=== PATIENT | male | born 1965 | race Caucasian/White ===

== ENCOUNTER 2020-05-20 14:37 | Emergency (ER) | payer MEDICAID ==
[~2020-05-20] VITALS: Ht 182.9 cm; Wt 95.3 kg
[~2020-05-20 14:37] MED LIST: CARI350T22 PO; CITA-73 PO; DIVA500T53 PO; DOXY-286 PO; INSUINJ47 IJ; METR500T PO; PANT1INJ3 PO; QUET25TA37 PO; SUCR1TAB22 OR
[2020-05-20] MEDS ORDERED: SODIUM CHLORIDE 0.9% 1,000 ML IV ONE (16:15)
[2020-05-20] MEDS ORDERED: ASPirin 81 mg TAB PO ONE (16:15)
[2020-05-20] MEDS ORDERED: SODIUM CHLORIDE 0.9% 1,000 ML IVB ONE (16:15)
[2020-05-20] MEDS ORDERED: DONNATAL 5ml ORAL Elix (BELLADONNA ALK-PHENOBARB) PO ONE (16:30)
[2020-05-20] MEDS ORDERED: ALUM & MAG HYDROX-SIMETH LIQ(MAALOX) 30 ML PO ONE (16:30)
[2020-05-20] MEDS ORDERED: LIDOCAINE VISCOUS 2% 15ML UD PO ONE (16:30)
[2020-05-20] MEDS ORDERED: FAMOTIDINE 20 MG TAB PO ONE (16:30)
[2020-05-20 16:39] LABS: Basophils # (auto) 0.1 10 ^3/uL (0-0.2); Basophils % (auto) 0.9 % (0.0-2.0); Eosinophils # (auto) 0.2 10 ^3/uL (0-0.8); Eosinophils % (auto) 2.4 % (0.0-7.0); Hematocrit 45.2 % (41.0-53.0); Hemoglobin 15.3 g/dL (13.5-17.5); Lymphocytes # (auto) 1.8 10 ^3/uL (0.4-5.4); Lymphocytes % (auto) 26.3 % (10.0-50.0); Mean Corpuscular Hemoglobin 28.7 pg (28.0-32.0); Mean Corpuscular Hgb Conc. 33.9 g/dL (32.0-36.0); Mean Corpuscular Volume 84.7 fL (80.0-100.0); Monocytes # (auto) 0.6 10 ^3/uL (0-1.3); Monocytes % (auto) 8.4 % (0.0-12.0); Neutrophils # (auto) 4.3 10 ^3/uL (1.6-8.6); Nucleated Red Blood Cells % 0.3 %; Platelet Count (auto) 305 10^3/uL (140-450); Red Blood Cells 5.34 10^6/uL (4.5-5.90); White Blood Cell 6.9 10^3/uL (4.4-10.8)
[2020-05-20 16:50] LABS: Alanine Aminotransferase 29 U/L (16-61); Albumin 3.6 g/dL (3.4-5.0); Anion Gap 8 (5-15); Aspartate Aminotransferase 14 U/L (15-37); BUN/Creatinine Ratio 20.3; Blood Urea Nitrogen 16 mg/dL (7-18); Calcium 9.1 mg/dL (8.5-10.1); Carbon Dioxide 27 mmol/L (21-32); Chloride 95 mmol/L (98-107); GFR African American 130 mL/min; GFR Non-African American 108 mL/min; Glucose 335 mg/dL (74-106); Potassium 4.6 mmol/L (3.5-5.1); Sodium 130 mmol/L (136-145)
[2020-05-20 16:55] LABS: Alkaline Phosphatase 128 U/L (45-117); Bilirubin, Total 0.5 mg/dL (0.2-1.0); Total Protein 7.6 g/dL (6.4-8.2)
[2020-05-20] MEDS ORDERED: IOHEXOL 300 MG/ML 100ML BOTTLE IJ ONE (18:33)
[2020-05-20] MEDS ORDERED: MORPHINE SULFATE 4 MG/ML SYR/VIAL IV ONE (20:30)
[2020-05-20] MEDS ORDERED: ONDANSETRON HCL 4 MG/2 ML VIAL IV ONE (20:30)
[2020-05-20 20:49] LABS: Urine Bacteria NONE SEEN /hpf (None Seen); Urine Blood Negative /uL (Negative); Urine Specific Gravity 1.044 (1.001-1.035); Urine WBC <1 /hpf (0 - 3)
[2020-05-20 21:06] LABS: Alcohol, Urine < 3.0 mg/dL (0-10); Amphetamine Screen, Urine POSITIVE (NEGATIVE); Barbiturate Scree,Urine NEGATIVE (NEGATIVE); Benzodiazephine Screen, Urine NEGATIVE (NEGATIVE); Cannabinoid Screen, Urine POSITIVE (NEGATIVE); Cocaine Screen, Urine NEGATIVE (NEGATIVE); Opiate Scree,Urine POSITIVE (NEGATIVE); Phencyclidine Screen, Urine NEGATIVE (NEGATIVE)
[2020-05-20 21:17] VITALS: BP 131/93
== END 2020-05-20 21:39 | disposition home or self-care (01) ==
LOC: ER 14:37
DX: R09.89 Other specified symptoms and signs involving the circulatory and respiratory systems (principal); R06.02 Shortness of breath; I25.708 Atherosclerosis of coronary artery bypass graft(s), unspecified, with other forms of angina pectoris; K21.00 Gastro-esophageal reflux disease with esophagitis, without bleeding; E11.9 Type 2 diabetes mellitus without complications; R11.10 Vomiting, unspecified; I12.9 Hypertensive chronic kidney disease with stage 1 through stage 4 chronic kidney disease, or unspecified chronic kidney disease; E11.22 Type 2 diabetes mellitus with diabetic chronic kidney disease; N18.9 Chronic kidney disease, unspecified; E78.5 Hyperlipidemia, unspecified; Z87.891 Personal history of nicotine dependence
CPT/HCPCS: 36415; 71045; 74177; 80053; 80307; 81001; 83690; 83735; 84443; 84484; 85025; 85379; 96361; 96374; 96375; 99285; J2270; J2405; J7030; Q9967